=== PATIENT | male | born 2000 | race Caucasian/White ===

== ENCOUNTER 2018-09-18 17:35 | Emergency (ER) | payer OTHER ==
[2018-09-18 17:43] VITALS: BP 115/74
--- NOTE | 2018-09-18 17:58 | EDPHY ---
H & P Time Seen by Provider: 09/18/18 17:45 HPI/ROS: CHIEF COMPLAINT: Right 5th digit laceration HISTORY OF PRESENT ILLNESS: 17-year-old male with up-to-date tetanus complaining of acute laceration to his right 5th digit distal phalanx palmar aspect when he was using of sharp metal object to change a tire and the object slipped. Not a crush injury. No foreign body sensation. No flexor extensor deficits. PHYSICAL EXAM (Prior to examination, patient consented to physical exam, hands were washed and my usual and customary physical exam procedures followed) 1) GENERAL: Well-developed, well-nourished, alert and oriented. Appears to be in no acute distress. 2) HEAD: Normocephalic 3) HEENT: sclera anicteric 4) LUNGS: Breathing comfortably. 5) SKIN: Right 5th digit distal phalanx palmar aspect 1 cm laceration not through and through . No underlying osseous discomfort. No malrotation. Normal cascading of digits. 6) MUSCULOSKELETAL: FDP FDS intact. 7) NEUROLOGIC: Full sensation two-point discrimination intact distally. Smoking Status: Current some day smoker Constitutional: Initial Vital Signs Temperature (C) 36.9 C 09/18/18 17:40 Heart Rate 87 09/18/18 17:40 Respiratory Rate 18 09/18/18 17:40 Blood Pressure 115/74 09/18/18 17:40 O2 Sat (%) 97 09/18/18 17:40 O2 Delivery Mode Room Air Allergies/Adverse Reactions: No Known Allergies Allergy (Unverified 09/18/18 17:40) Home Medications: Medication Instructions Recorded Cephalexin [Keflex] 500 mg PO TID 5 Days cap 09/18/18 MDM/Departure - MDM Procedures: Procedure: Laceration repair. I explained the indications, risks and benefits for both laceration repair and anesthetic administration. Verbal consent was obtained from the patient. The laceration on the right pinky finger was anesthetized using 0.5% bupivicaine without epinephrine digital nerve block. After anesthetic administered the patient was observed for a period of time and had no apparent adverse effects. The wound was cleaned, prepped, draped in normal sterile fashion and explored to its base. No foreign body seen, no foreign bodies palpated. There were no deep structures involved. No tendon injury was identified. The wound was repaired with 1 simple interrupted 5 O Prolene suture. The wound repair was simple. The procedure was performed by myself. Patient has been informed that scarring will occur, although efforts have been made to minimize this. ED Course/Re-evaluation: Patient has no underlying osseous discomfort. This is not crush injury. Will initiate prophylactic antibiotic therapy, recommend return to the ER 10 days for suture removal. Usual and customary wound precautions and instructions provided. Care of patient under supervision of secondary supervising physician Dr Garza . - Depart Disposition: Home, Routine, Self-Care Clinical Impression: Laceration of little finger Qualifiers: Encounter type: initial encounter Damage to nail status: without damage Foreign body presence: without foreign body Laterality: right Qualified Code(s) : S61.216A - Laceration without foreign body of right little finger without damage to nail, initial encounter Condition: Good Instructions: Laceration (ED) Additional Instructions: Return to the ER if you develop redness, swelling, discharge, warmth to the wound, red streaks going up your arm, or any other symptoms that concern you. Prescriptions: Cephalexin [Keflex] 500 mg PO TID 5 Days cap Referrals: Return, to the ER in 10 days for suture removal [Other] - As per Instructions
== END 2018-09-18 18:52 | disposition home or self-care (01) ==
PROC: 0HQFXZZ Repair Right Hand Skin, External Approach (ICD-10-PCS; principal; 2018-09-18)
DX: S61.216A Laceration without foreign body of right little finger without damage to nail, initial encounter (principal); W26.9XXA Contact with unspecified sharp object(s), initial encounter; Y93.89 Activity, other specified; Y92.9 Unspecified place or not applicable; Y99.9 Unspecified external cause status